=== PATIENT | male | born 1955 ===

== ENCOUNTER 2023-11-22 12:28 | Day surgery (SDC) | payer MEDICARE ==
[~2023-11-22] VITALS: Ht 182.9 cm; Wt 90.0 kg
[2023-11-22] MEDS ORDERED: METO25ER (13:04)
[2023-11-22] MEDS ORDERED: ELIQUIS5 M2 (13:04)
[2023-11-22] MEDS ORDERED: Flecainide Acet50 MG (13:05)
[2023-11-22] MEDS ORDERED: TADA10TA (13:05)
[2023-11-22] MEDS ORDERED: LOSA50 (13:05)
[2023-11-22] MEDS ORDERED: POTA10T (13:06)
[2023-11-22] MEDS ORDERED: ATROPINE SULFATE2 M1 (13:07)
[2023-11-22] MEDS ORDERED: ATORVASTATIN CA40 M1 (13:07)
[2023-11-22] MEDS ORDERED: METO50 (13:07)
[2023-11-22] MEDS ORDERED: Dexamethasone Sod Phos 10 MG/ML 1ML VIAL ONE (13:12)
[2023-11-22] MEDS ORDERED: propofoL 20 ML IV ONE (13:12)
[2023-11-22] MEDS ORDERED: FentaNYL Citrate 50 MCG/ML 2 ML Injection ONE (13:12)
[2023-11-22] MEDS ORDERED: Ondansetron HCl 2 MG / ML 2ML Vial ONE (13:12)
[2023-11-22] MEDS ORDERED: Lactated Ringer's 1,000 ML IV ONE ×2 (13:24→13:49)
[2023-11-22] MEDS ORDERED: Bupivacaine 0.5% HCl 5 MG/ML 30MLVIAL ONE (13:47)
[2023-11-22] MEDS ORDERED: EPINEPhrine HCl 1 MG/ML 1ML Amp ONE (13:47)
[2023-11-22] MEDS ORDERED: Lidocaine 2%-Epineph 1:200000 20 ML SDV ONE (13:47)
[2023-11-22] MEDS ORDERED: Erythromycin 0.5% Opth Oint 1 gm ONE (13:47)
[2023-11-22] MEDS ORDERED: Midazolam HCl 1MG / ML 2ML Vial ONE (13:49)
[2023-11-22] MEDS ORDERED: Gentamicin Sulfate 40 MG / ML 2ML Vial XX ONE (14:10)
--- NOTE | 2023-11-22 15:16 | NUR ---
11/22/23 1516 Umu Blackwood 80MG PER 2 ML GENTAMICIN USED IN [facility] TO HYDRATE SCLERA GRAFT ON STERILE FIELD
--- NOTE | 2023-11-22 15:25 | NUR ---
11/22/23 1525 Any Gray LMA OUT AT 1524. SATS ARE 100% ROOM AIR.
--- NOTE | 2023-11-22 15:38 | NUR ---
11/22/23 1538 MORENA OCHOA PT DENIES PAIN AND NAUSEA. DECLINES WARM BLANKET. PT VERY SLEEPY BUT EASILY AROUSABLE.
[2023-11-22] MEDS ORDERED: OxyCODONE HCL 5 MG TAB ONE (16:11)
== END 2023-11-22 16:55 | disposition home or self-care (01) ==
LOC: ORSCSDS 12:28
PROVIDERS: Ophthalmology
PROC: 08T0XZZ Resection of Right Eye, External Approach (ICD-10-PCS; principal; 2023-11-22 13:45)
DX: H44.521 Atrophy of globe, right eye (principal); H57.11 Ocular pain, right eye; I48.91 Unspecified atrial fibrillation; Z79.01 Long term (current) use of anticoagulants; I10 Essential (primary) hypertension; E78.00 Pure hypercholesterolemia, unspecified; Z79.899 Other long term (current) drug therapy
CPT/HCPCS: 88307; A9270; C1889; J0171; J1100; J1580; J2250; J2405; J2704; J3010; J7120